=== PATIENT | female | born 1970 | race Caucasian/White ===

== ENCOUNTER 2018-11-20 10:56 | Emergency (ER) | payer OTHER ==
[~2018-11-20] VITALS: Ht 175.3 cm; Wt 74.8 kg
[2018-11-20 10:56] VITALS: BP_SYST 136
--- NOTE | 2018-11-20 10:57 | NUR ---
BROUGHT IN BY [facility] AND PLACED IN BED #3, TRIAGED. REPORT GIVEN TO EULOGIO
--- NOTE | 2018-11-20 11:20 | NUR ---
ER Dr. Hernandez at bedside examining patient.
--- NOTE | 2018-11-20 11:27 | NUR ---
Patient is awake, alert, and oriented x4. Patient reports nausea, vomiting, diarrhea, and abdominal pain since last night. Patient is also complaining of tingling and numbness in all her fingers.
[2018-11-20] MEDS ORDERED: ONDANSETRON HCL 4 MG/2 ML VIAL IVP ONE ×2 (11:30→15:15)
[2018-11-20] MEDS ORDERED: NACL 0.9% 1,000 ML IV ONE (11:30)
[2018-11-20] MEDS ORDERED: FAMOTIDINE PF 20 MG/2 ML VIAL IVP ONE (11:30)
[2018-11-20] MEDS ORDERED: fentaNYL CITRATE/PF 100 MCG/2 ML AMP IVP ONE (11:30)
[2018-11-20 11:40] LABS: BASOPHILS % (AUTO) 0.1 % (0.0-2.0); EOSINOPHILS % (AUTO) 0.1 % (0.0-4.0); HEMATOCRIT 43.8 % (36-48); HEMOGLOBIN 14.7 g/dL (12.0-16.0); LYMPHOCYTES # (AUTO) 0.5 K/uL (1.0-5.5); MEAN CORPUSCULAR HEMOGLOBIN 30 pg (27-31); MEAN CORPUSCULAR HGB CONC 34 % (32-36); MEAN CORPUSCULAR VOLUME 91 fL (79.0-98.0); MONOCYTES # (AUTO) 0.5 K/uL (0.0-1.0); MONOCYTES % (AUTO) 3.4 % (1.7-9.3); NEUTROPHILS # (AUTO) 12.6 K/uL (1.8-7.7); NEUTROPHILS % (AUTO) 92.4 % (40.0-70.0); PLATELET COUNT (AUTO) 366 K/uL (130-430); RED BLOOD CELL COUNT(AUTO) 4.83 MIL/uL (4.2-6.2); RED CELL DISTRIBUTION WIDTH 12.7 % (9.0-15.0); WHITE BLOOD COUNT (AUTO) 13.6 K/uL (4.8-10.8)
[2018-11-20 11:45] LABS: CALCIUM 8.9 mg/dL (8.4-11.0); CREATININE 0.83 mg/dL (0.55-1.30); POTASSIUM 3.2 mmol/L (3.5-5.1)
[2018-11-20 11:50] LABS: ALBUMIN 3.9 g/dL (3.4-4.8); TOTAL BILIRUBIN 0.7 mg/dL (0.0-1.0)
[2018-11-20 12:22] LABS: BILIRUBIN,URINE NEGATIVE (NEGATIVE); BLOOD, URINE NEGATIVE (NEGATIVE); CLARITY/URINE CLEAR (CLEAR); COLOR,URINE YELLOW (YELLOW); GLUCOSE,URINE NEGATIVE (NEGATIVE); KETONES,URINE NEGATIVE (NEGATIVE); LEUKOCYTE ESTERASE ,URINE NEGATIVE (NEGATIVE); NITRITE, URINE NEGATIVE (NEGATIVE); PH,URINE 8.5 (5.0-8.0); PROTEIN URINE NEGATIVE (NEGATIVE); UROBILINOGEN,URINE 0.2 (0.2-1.0)
--- NOTE | 2018-11-20 12:22 | NUR ---
US at bedside
[2018-11-20] MEDS ORDERED: MORPHINE 4 MG/ML INJ. SYRINGE IVP ONE ×3 (12:45→19:00)
[2018-11-20] MEDS ORDERED: LEVO100T PO (13:11)
--- NOTE | 2018-11-20 14:22 | NUR ---
Dr. Hernandez made aware of patient pain and nausea.
--- NOTE | 2018-11-20 14:50 | NUR ---
Patient transported to radiology via gurney, accompanied by health technician.
--- NOTE | 2018-11-20 15:03 | NUR ---
Notified MD of patient pain and nausea.
--- NOTE | 2018-11-20 15:05 | NUR ---
Returned from radiology, back to [facility].
[2018-11-20] MEDS ORDERED: cefTRIAXone 1 GM IVPB PREMIX 50 ML IV ONE (17:00)
[2018-11-20] MEDS ORDERED: metroNIDAZOLE 500 mg/NS 100 ML IV ONE (17:00)
[2018-11-20] MEDS ORDERED: MAG-AL HYDROX/SIMETH 30 ML UDC PO ONE (17:15)
[2018-11-20] MEDS ORDERED: BELLADONNA ALKALOIDS/PHENOBARB 5 ML UDC PO ONE (17:15)
[2018-11-20] MEDS ORDERED: LIDOCAINE VISCOUS 2%, 15 ML UDC MM ONE (17:15)
[2018-11-20] MEDS ORDERED: DICYCLOMINE HCL 10 MG/5 ML SOLUTION PO ONE (17:30)
--- NOTE | 2018-11-20 18:55 | NUR ---
Dr. Hernandez made aware of patient pain and vitals.
[2018-11-20] MEDS ORDERED: ACETAMINOPHEN 500 MG TABLET PO ONE (19:00)
--- NOTE | 2018-11-20 19:08 | NUR ---
Report given to PRIMITIVO Ceballos for continuation of care.
--- NOTE | 2018-11-20 19:16 | NUR ---
Report given to PRIMITIVO Calvillo at [facility].
[2018-11-20 19:28] VITALS: BP_SYST 131
--- NOTE | 2018-11-20 19:28 | NUR ---
Patient to be transferred to [facility]. Is being transferred due to higher level of care. Receiving facility has accepting physician and available space. ER physician has signed transfer form. Patient or responsible alliance party has agreed to transfer and signed form. Patient belongings inventoried and will be sent with patient. Copy of nursing notes, lab reports, EKG, Physicians Orders and X-rays to be sent with patient. Report called to Karli at receiving facility. Receiving physician is Dr. Loja. [facility] has been called for transfer.
--- NOTE | 2018-11-20 19:29 | NUR ---
Transfer to [facility]. IV present no signs or symptoms of infiltration. VSS
== END 2018-11-20 19:29 | disposition short-term general hospital (02) ==
LOC: SED 10:56
DX: D72.829 Elevated white blood cell count, unspecified (principal); R10.13 Epigastric pain
CPT/HCPCS: 36415; 71045; 74176; 76700; 80053; 80061; 81003; 81025; 82550; 83690; 85025; 87040; 93005; 96361; 96365; 96366; 96375; 96376; 99291; J0696; J2001; J2270; J2405; J3010; J3490 ×2; J7030; 99285

== ENCOUNTER 2020-11-19 03:53 | Emergency (ER) | payer OTHER ==
[~2020-11-19] VITALS: Ht 172.7 cm; Wt 80.7 kg
[~2020-11-19 03:53] MED LIST: LEVO100T PO
[2020-11-19 03:57] VITALS: BP_SYST 136
--- NOTE | 2020-11-19 04:00 | NUR ---
Placed in room 6 . Placed on gambling monitor, blood pressure machine and pulse oximeter. To gown for exam. Side rails up. Report given to JENN LANGFORD.
--- NOTE | 2020-11-19 04:12 | NUR ---
# 20 gauge angiocath placed to rt hand. Use of asceptic technique. Opsite placed over site. Blood return noted. Blood for lab drawn from site. Flushed with 10 cc of normal saline. No evidence of infiltration noted. Patient tolerated well.
[2020-11-19] MEDS ORDERED: ONDANSETRON HCL 4 MG/2 ML VIAL IVP ONE (04:15)
[2020-11-19] MEDS ORDERED: NACL 0.9% 1,000 ML IV ONE (04:15)
--- NOTE | 2020-11-19 04:15 | NUR ---
Pt from home c/o RUQ/epigastric abdominal pain that has been ongoing x several weeks and worse today. +N/V. No SOB, CP. Pt has an appointment with a GI specialist next week.
[2020-11-19 04:18] LABS: HEMATOCRIT 40.1 % (36-48); HEMOGLOBIN 13.7 g/dL (12.0-16.0); MEAN CORPUSCULAR HEMOGLOBIN 30 pg (27-31); MEAN CORPUSCULAR HGB CONC 34 % (32-36); MEAN CORPUSCULAR VOLUME 89 fL (79.0-98.0); PLATELET COUNT (AUTO) 426 K/uL (130-430); RED BLOOD CELL COUNT(AUTO) 4.52 MIL/uL (4.2-6.2); RED CELL DISTRIBUTION WIDTH 12.6 % (9.0-15.0); WHITE BLOOD COUNT (AUTO) 23.2 K/uL (4.8-10.8)
--- NOTE | 2020-11-19 04:21 | NUR ---
ER at bedside examining patient.
[2020-11-19] MEDS ORDERED: FAMOTIDINE PF 20 MG/2 ML VIAL IVP ONE (04:30)
[2020-11-19] MEDS ORDERED: MORPHINE 4 MG INJ. 4 MG/ML VIAL IVP ONE ×2 (04:30→06:15)
[2020-11-19 04:32] LABS: ATYPICAL LYMPHOCYTES % 0 % (0-0); BAND % (MANUAL) 0 % (0-6); BASOPHILS % (MANUAL) 0 % (0-2); EOSINOPHILS % (MANUAL) 2 % (0-7); LYMPHOCYTES % (MANUAL) 11 % (20-46); MONOCYTES % (MANUAL) 8 % (0-11)
[2020-11-19 04:39] LABS: ALANINE AMINOTRANSFERASE 38 U/L (12-78); ALBUMIN 3.6 g/dL (3.4-4.8); ANION GAP 15 (5-15); ASPARTATE AMINOTRANSFERASE 30 U/L (10-37); CHLORIDE 103 mmol/L (98-107); CREATININE 0.82 mg/dL (0.55-1.30); GLUCOSE 108 mg/dL (70-99); LIPASE 152 U/L (73-393); POTASSIUM 3.4 mmol/L (3.5-5.1); SODIUM SERUM 140 mmol/L (136-145); TOTAL BILIRUBIN 0.3 mg/dL (0.0-1.0); UREA NITROGEN, BLOOD 12 mg/dL (8-21)
[2020-11-19 04:40] LABS: GFR AFRICAN AMERICAN 96 mL/min (>90); HCG,QUANTITATIVE 1 mIU/ML (0-6)
--- NOTE | 2020-11-19 05:10 | NUR ---
US at bedside
--- NOTE | 2020-11-19 06:11 | NUR ---
Juan holland in ED - 11/19/20 at 0644 by [id number] ADRIANNE FROM [facility] CALLED TO FOLLOW UP WITH PATIENT. RECOMMEDED IF PATIENT CONTINUES TO DESATURATE TO GIVE ADDITIONAL NARCAN.
[2020-11-19] MEDS ORDERED: MORPHINE 4 MG INJ. 4 MG/ML VIAL ONE (06:35)
--- NOTE | 2020-11-19 06:40 | NUR ---
Pt MELBA to CT
--- NOTE | 2020-11-19 06:50 | NUR ---
Pt back from CT
--- NOTE | 2020-11-19 07:15 | NUR ---
REPORT RECEIVED FROM PRIMITIVO BARAJAS FOR CONTINUING CARE
--- NOTE | 2020-11-19 07:19 | NUR ---
Report given to Romelia LANGFORD
--- NOTE | 2020-11-19 07:30 | NUR ---
PT RESTING IN BED, NO DISTRESS NOTED, V/S STABLE
[2020-11-19 07:34] LABS: BILIRUBIN,URINE NEGATIVE (NEGATIVE); BLOOD, URINE NEGATIVE (NEGATIVE); CLARITY/URINE SLIGHTLY HAZY (CLEAR); COLOR,URINE YELLOW (YELLOW); GLUCOSE,URINE NEGATIVE (NEGATIVE); KETONES,URINE TRACE (NEGATIVE); LEUKOCYTE ESTERASE ,URINE TRACE (NEGATIVE); NITRITE, URINE NEGATIVE (NEGATIVE); PH,URINE 6.5 (5.0-8.0); PROTEIN URINE NEGATIVE (NEGATIVE); UROBILINOGEN,URINE 0.2 (0.2-1.0)
--- NOTE | 2020-11-19 07:34 | NUR ---
LAB AT THE BEDSIDE FOR BLOOD DRAW
[2020-11-19 07:38] LABS: BACTERIA,URINE RARE /HPF (None Seen); RBC,URINE NONE SEEN /HPF (0-3); WBC,URINE 0-3 /HPF (0-3)
[2020-11-19] MEDS ORDERED: FAMO20TA8 PO (08:17)
[2020-11-19] MEDS ORDERED: ONDA4TAB5 PO (08:34)
[2020-11-19 09:00] VITALS: BP_SYST 132
--- NOTE | 2020-11-19 09:01 | NUR ---
Patient given written and verbal discharge instructions and verbalizes understanding. ER MD discussed with patient the results and treatment provided. Patient in stable condition. ID arm band removed. IV catheter removed intact and dressing applied, no active bleeding. Rx of PEPCID AND ZOFRAN given. Patient educated on pain management and to follow up with PMD. Pain Scale 0/10. Opportunity for questions provided and answered. Medication side effect fact sheet provided.
== END 2020-11-19 09:00 | disposition home or self-care (01) ==
LOC: SED 03:53
DX: R10.13 Epigastric pain (principal); R07.9 Chest pain, unspecified; R11.10 Vomiting, unspecified; Z79.899 Other long term (current) drug therapy
CPT/HCPCS: 36415; 74177; 76376; 76700; 80053; 81000; 83605; 83690; 84484; 84702; 85007; 85027; 87040; 93005; 96361; 96374; 96375; 96376; 99285; J2270; J2405; J3490; J7030; Q9967

== ENCOUNTER 2021-04-05 14:08 | Emergency (ER) | payer OTHER ==
[~2021-04-05] VITALS: Ht 172.7 cm; Wt 70.3 kg
[2021-04-05 14:08] VITALS: BP_SYST 147
[~2021-04-05 14:08] MED LIST changes: +FAMO20TA8 PO; +ONDA4TAB5 PO
--- NOTE | 2021-04-05 14:08 | NUR ---
BROUGHT IN BY [facility], PLACED IN HALLWAY AND TRIAGED. AWAITING ER AVAILABLE BED.
--- NOTE | 2021-04-05 14:29 | NUR ---
PT STATES SHE HAD A HYSTERCTOMY 2 WEEKS AGO AND NOW PRESENTS WITH LLQ PAIN, STATES CONSTANT DIARRHEA SINCE SURGERY.
--- NOTE | 2021-04-05 14:39 | NUR ---
DR ROYAL AT BEDSIDE FOR EVALUATION
--- NOTE | 2021-04-05 14:45 | NUR ---
Patient does not wish to proceed with medical care recommended by DR ROYAL. Patient given information related to possible complications, up to and including , which could occur as a result of leaving hospital at this time. Patient verbalizes understanding of risks involved leaving against medical advice. Patient has signed AMA form.
== END 2021-04-05 14:45 | disposition left against medical advice (07) ==
LOC: SED 14:08
DX: R10.30 Lower abdominal pain, unspecified (principal); Z90.710 Acquired absence of both cervix and uterus; Z79.899 Other long term (current) drug therapy
CPT/HCPCS: 99281